=== PATIENT | male | born 1965 | race Caucasian/White ===

== ENCOUNTER → 2017-04-22 | Outpatient (CLI) | payer OTHER ==
--- NOTE | 2017-04-22 13:32 | PCVCIMAG ---
APPROVED REPORT Exam: Stress Echocardiogram Indication: CAD, STENT, HYPERLIPIDEMIA. Patient Location: Echo lab Stress Nurse: Nai Jaeger RN Status: routine Ht: 6 ft 1 in HR: 68 bpm BP: 146/90 mmHg Rhythm: NSR Procedure The patient underwent an Exercise Stress Test using the Juan Protocol. Blood pressure, heart rate, and EKG were monitored. An Echocardiogram was performed by donor services technician in four stages in quad fashion. At peak stress, four selected images were obtained and placed side by side with resting images for comparison. Stress Test Details Stress Test: Exercise stress testing was performed using a Juan protocol. HR Resting HR: 68 bpmMax Heart Rate (APMHR): 167 bpm Max HR Achieved: 151 bpmTarget HR (85% APMHR): 141 bpm % of APMHR: 90 HR response to stress: Normal HR response to stress BP Resting BP: 146/90 mmHg Max BP: 168/78 mmHg ECG Resting ECG: Sinus Rhythm Stress ECG: Sinus Rhythm Recovery ECG: Sinus Rhythm Clinical Reason for Termination: Maximal effort Exercise duration: 13 min 52 sec Highest Stage Achieved: Stage 5: 5.0 mph at 18% grade. Exercise capacity: 17.50 METs Overall Exercise Capacity for Age: Good Pre-Stress Echo The resting Echocardiogram showed normal left ventricular contractility with an estimated Ejection Fraction of about 55-60%. Normal wall motion in all segments on baseline images. Post-Stress Echo The stress Echocardiogram showed normal left ventricular contractility with an estimated Ejection Fraction of about 60-65%. Normal augmentation of wall motion in all segments on post stress images. Clinical No clinical or ECG evidence for ischemia. Conclusion Clinical Response: Non-ischemic Exercise Capacity: Superior Stress ECG Response: Non-ischemic Stress Echo Images: Non-ischemic The left ventricle is normal in size and wall thickness in both the rest and stress images. <Conclusion> The left ventricle is normal in size and wall thickness in both the rest and stress images.
== END | disposition home or self-care (01) ==
LOC: PCVCIMAG 09:37
PROVIDERS: ATTEND Internal Medicine Cardiovascular Disease
DX: I25.10 Atherosclerotic heart disease of native coronary artery without angina pectoris (principal); E78.5 Hyperlipidemia, unspecified; I10 Essential (primary) hypertension; R53.83 Other fatigue; Z95.5 Presence of coronary angioplasty implant and graft
CPT/HCPCS: 93325; 93351

== ENCOUNTER → 2018-07-28 | Outpatient (CLI) | payer OTHER ==
--- NOTE | 2018-07-28 10:29 | PCVCIMAG ---
APPROVED REPORT Study performed: 07/28/2018 09:20:13 Exam: Stress Echocardiogram Indication: CAD, Stent, Hyperlipidemia, Dyspnea Patient Location: Echo lab Stress Nurse: Joi Philippe RN Status: routine Ht: 6 ft 1 in HR: 63 bpm BP: 150/90 mmHg Rhythm: NSR Medical History Medical History: CAD s/p stent, Hyperlipidemia Procedure The patient underwent an Exercise Stress Test using the Juan Protocol. Blood pressure, heart rate, and EKG were monitored. An Echocardiogram was performed by cardiopulmonary technician and eeg tech in four stages in quad fashion. At peak stress, four selected images were obtained and placed side by side with resting images for comparison. Stress Test Details Stress Test: Exercise stress testing was performed using a Juan protocol. HR Resting HR: 63 bpmMax Heart Rate (APMHR): 166 bpm Max HR Achieved: 144 bpmTarget HR (85% APMHR): 141 bpm % of APMHR: 86 Recovery HR: 90 bpm HR response to stress: Normal HR response to stress BP Resting BP: 150/90 mmHg Max BP: 190/78 mmHg Recovery BP: 160/76 mmHg BP response to stress: Normal blood pressure response to stress. ECG Resting ECG: Sinus Rhythm Stress ECG: Sinus Rhythm Recovery ECG: Sinus Rhythm Clinical Reason for Termination: Maximal effort Exercise duration: 14 min 03 sec Highest Stage Achieved: Stage 5: 5.0 mph at 18% grade. Exercise capacity: 17.20 METs Overall Exercise Capacity for Age: Excellent Pre-Stress Echo The resting Echocardiogram showed normal left ventricular contractility with an estimated Ejection Fraction of about 55-60%. Normal wall motion in all segments on baseline images. Post-Stress Echo The stress Echocardiogram showed normal left ventricular contractility with an estimated Ejection Fraction of about 60-65%. Normal augmentation of wall motion in all segments on post stress images. Clinical No clinical or ECG evidence for ischemia. Conclusion Clinical Response: Non-ischemic Exercise Capacity: Superior Stress ECG Response: Non-ischemic Stress Echo Images: Non-ischemic The left ventricle is normal in size and wall thickness in both the rest and stress images. Other Information Study Quality: Good <Conclusion> The left ventricle is normal in size and wall thickness in both the rest and stress images.
== END | disposition home or self-care (01) ==
LOC: PCVCIMAG 09:06
PROVIDERS: ATTEND Internal Medicine Cardiovascular Disease
DX: I25.10 Atherosclerotic heart disease of native coronary artery without angina pectoris (principal); R06.00 Dyspnea, unspecified; I10 Essential (primary) hypertension; E78.00 Pure hypercholesterolemia, unspecified
CPT/HCPCS: 93325; 93351

== ENCOUNTER → 2019-03-16 | Outpatient (CLI) | payer BC ==
[~2019-03-16] MED LIST: REGADENOSON 0.4 MG/5 ML DISP.SYRIN. IV ONE
--- NOTE | 2019-03-16 15:22 | PCVCIMAG ---
APPROVED REPORT Imaging Protocol: Rest Tc-99m/Stress Tc-99m 1 day Study performed: 03/16/2019 09:21:22 Indication: CAD , Chest pain Patient Location: Out-Patient Stress Nurse: Joi Philippe RN RI Tech:Savilesvia Talley [facility] Ht: 6 ft 2 in Wt: 170 lbs BSA: 2.03 m2 HR: 72 bpm BP: 130/70 mmHg BMI: 21.8 Rhythm: Sinus Rhythm, short NE interval Medical History Medical History: Hyperlipidemia, CVD Medications: Bystolic, Atorvastatin Allergies: Sulfa Cardiac Risk Factors: Age Previous Cardiac Procedures: PCI To LAD Pretest Chest Pain Characteristics: No chest pain Exercise History: Physically active Meds Held (24 hrs): Bystolic Resting Data Rest SPECT myocardial perfusion imaging was performed in supine position 45 minutes following the intravenous injection of 10.4 mCi of Tc-99m Sestamibi. Time of rest injection: 08 Date: 03/16/2019 Administration Route: IV Administration Site: Right Hand Pharmacologic Stress Pharmacologic stress test was performed by injecting Regadenoson 0.4 mg IV push over 10-15 seconds immediately followed by the intravenous injection of 35.1 mCi of Tc-99m Sestamibi. Time of stress injection: 1015 Date: 03/16/2019 Administration Route: IV Administration Site: Right Hand Gated Stress SPECT was performed 45 minutes after stress injection. The images were gated to evaluate regional wall motion and calculate left ventricular ejection fraction. Stress Test Details Stress Test: Pharmacologic stress testing performed using 0.4 mg of regadenoson per 5 mL given IV over 10 seconds. Reason for pharmacologic stress test: Attempted Juan protocol, unable to achieve acceptable heart rate. HRMax Heart Rate (APMHR): 165 bpm Resting HR: 72 bpmTarget HR (85% APMHR): 140 bpm Max HR Achieved: 92 bpm % of APMHR: 55 Recovery HR: 75 bpm BP Resting BP: 130/70 mmHg Max BP: 140/75 mmHg Recovery BP: 124/72 mmHg ECG Resting ECG: Sinus Rhythm, short NE interval Stress ECG: Sinus Rhythm, short NE interval, ST abnormalities Arrhythmia: None Recovery ECG: Sinus Rhythm, short NE interval, ST abnormalities Clinical Reason for Termination: Completed protocol Stress Symptoms: Dyspnea Exercise duration: 4 min 00 sec Exercise capacity: 1.6 METs Symptoms resolved during recovery. Study Quality Study: Good Study Data Post stress, the left ventricular ejection was 73%.. SSS: 0 SRS: 0 SDS: 0 TID = 0.95. Perfusion No evidence of stress induced ischemia or prior myocardial infarction. Wall Motion Normal left ventricular size and function with no regional wall motion abnormalities. Nuclear Conclusion No evidence of stress induced ischemia or prior myocardial infarction. Normal left ventricular size and function with no regional wall motion abnormalities. Post stress, the left ventricular ejection was 73%. No prior study available for comparison. Interpreted by: Sandip Garcia MD Electronically Approved: 03/16/2019 13:39:37
== END | disposition home or self-care (01) ==
LOC: PCVCIMAG 09:04
PROVIDERS: ATTEND Internal Medicine Cardiovascular Disease
DX: I25.10 Atherosclerotic heart disease of native coronary artery without angina pectoris (principal); I21.4 Non-ST elevation (NSTEMI) myocardial infarction; R06.00 Dyspnea, unspecified; Z88.2 Allergy status to sulfonamides
CPT/HCPCS: 78452; 93017; A9500; J2785

== ENCOUNTER → 2019-05-29 | Outpatient (CLI) | payer BC ==
--- NOTE | 2019-05-29 12:12 | PCVCIMAG ---
APPROVED REPORT Laterality: Bilateral Indications Stenosis Doppler Spectral Velocity Analysis PSV / EDVPSV / EDV ECA (R) 105 / 22 cm/sECA (L) 76 / 14 cm/s dICA (R) 72 / 30 cm/sdICA (L) 45 / 17 cm/s Ara (R) 81 / 29 cm/smICA (L) 61 / 23 cm/s pICA (R) 84 / 17 cm/spICA (L) 69 / 18 cm/s Bulb (R) 99 / 28 cm/sBulb (L) 58 / 16 cm/s dCCA (R) 70 / 18 cm/sdCCA (L) 61 / 17 cm/s mCCA (R) 79 / 19 cm/smCCA (L) 88 / 18 cm/s Vert (R) 43 / 14 cm/sVert (L) 49 / 16 cm/s ICA/CCA 1.20 ICA/CCA 1.13 Findings The right carotid bulb has minimal plaque. The right proximal internal carotid artery shows <40% stenosis. The right common carotid artery shows no significant stenosis. The right external carotid artery shows no significant stenosis. The left carotid bulb has minimal plaque. The left proximal internal carotid artery shows no significant stenosis. The left common carotid artery shows no significant stenosis. The left external carotid artery shows no significant stenosis. Conclusion 1. Right internal carotid artery stenosis (less than 40%). 2. Left internal carotid artery minimal plaquing without significant stenosis. 3. Antegrade vertebral flow.
== END | disposition home or self-care (01) ==
LOC: PCVCIMAG 11:35
PROVIDERS: ATTEND Internal Medicine Cardiovascular Disease
DX: I65.23 Occlusion and stenosis of bilateral carotid arteries (principal); I25.10 Atherosclerotic heart disease of native coronary artery without angina pectoris; I10 Essential (primary) hypertension; E78.5 Hyperlipidemia, unspecified; Z90.49 Acquired absence of other specified parts of digestive tract; Z90.09 Acquired absence of other part of head and neck; Z88.1 Allergy status to other antibiotic agents
CPT/HCPCS: 93880